=== PATIENT | female | born 1935 | race Caucasian/White ===

== ENCOUNTER 2016-04-03 09:20 | Outpatient (CLI) | payer OTHER ==
--- NOTE | 2016-04-03 09:53 | DIAGNOSTIC IMAGING REPORT ---
PROCEDURE: XR KNEE 3 VIEWS - LEFT INDICATION: KNEE PX, initial encounter TECHNIQUE: Three views. COMPARISON: None. FINDINGS: Osteopenia. No fracture or dislocation. Normal joint spaces. No effusion. IMPRESSION: 1. Osteopenia
== END 2016-04-03 23:00 ==
LOC: XR SRH 09:20
DX: M85.80 Other specified disorders of bone density and structure, unspecified site (principal); C56.9 Malignant neoplasm of unspecified ovary; R68.2 Dry mouth, unspecified

== ENCOUNTER 2016-04-18 18:20 | Outpatient (CLI) | payer OTHER | END 2016-04-18 23:00 | LOC: LAB SRH 18:20 | DX: M79.89 Other specified soft tissue disorders (principal) | CPT/HCPCS: 90074; 91556 ==

== ENCOUNTER 2016-04-19 14:36 | Outpatient (CLI) | payer OTHER ==
--- NOTE | 2016-04-19 16:00 | DIAGNOSTIC IMAGING REPORT ---
PROCEDURE: US VENOUS - BILATERAL EXT INDICATION: SWELLING OF LEFT LEG/KNEE TECHNIQUE: Duplex sonography of the deep venous system in both lower extremities was performed. Compression and augmentation techniques were used. COMPARISON: None. FINDINGS: Each interrogated segment of deep vein from the common femoral vein into the calf veins demonstrates normal compressibility, augmentation and/or color Doppler flow without filling defect. No evidence of significant soft-tissue edema, soft-tissue mass or cyst. There is a fluid collection in the left anterior thigh distally. There is superficial femoral vein reflux with an component edi programmer to the greater saphenous vein. Greater saphenous vein measures 1.1 cm and there was 36 seconds of reflux. IMPRESSION: 1. No deep venous thrombosis in either lower extremity. 2. 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 3. Fluid collection proximal to the patella on the left.
--- NOTE | 2016-04-19 16:00 | DIAGNOSTIC IMAGING REPORT ---
PROCEDURE: US VENOUS - BILATERAL EXT INDICATION: SWELLING OF LEFT LEG/KNEE TECHNIQUE: Duplex sonography of the deep venous system in both lower extremities was performed. Compression and augmentation techniques were used. COMPARISON: None. FINDINGS: Each interrogated segment of deep vein from the common femoral vein into the calf veins demonstrates normal compressibility, augmentation and/or color Doppler flow without filling defect. No evidence of significant soft-tissue edema, soft-tissue mass or cyst. There is a fluid collection in the left anterior thigh distally. There is superficial femoral vein reflux with an component cinder block maker to the greater saphenous vein. Greater saphenous vein measures 1.1 cm and there was 36 seconds of reflux. IMPRESSION: 1. No deep venous thrombosis in either lower extremity. 2. 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 3. Fluid collection proximal to the patella on the left.
== END 2016-04-19 23:00 ==
LOC: US SRH 14:36
DX: I87.2 Venous insufficiency (chronic) (peripheral) (principal)

== ENCOUNTER 2016-04-26 08:27 | Outpatient (CLI) | payer OTHER ==
--- NOTE | 2016-04-26 09:54 | DIAGNOSTIC IMAGING REPORT ---
PROCEDURE: MR LOWER EXT JOINT WO CONT-LT INDICATION: INTERNAL DERANGMENT OF LEFT KNEE TECHNIQUE: PD and FAT-SAT PD sagittal and coronal images. FAT-SAT PD axial images. High-resolution T2 sagittal images of the cruciate ligaments. (Total of 6 sequences). COMPARISON: Left knee x-ray 04/03/2016 FINDINGS: Normal cruciate and lateral collateral ligaments. MCL is intact with adjacent edema suggestive of strain. Complex tear of the medial meniscus posterior horn. Normal lateral meniscus. Mild chondromalacia the medial and lateral compartments. Quadriceps and patellar tendons are normal. Prepatellar subcutaneous edema. Mild chondromalacia patella. Moderate effusion. Varicose veins present around the knee. IMPRESSION: 1. Medial meniscus posterior horn complex tear 2. 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 Findings suggestive of an MCL strain 4. Moderate effusion 5. Varicose veins
== END 2016-04-26 23:00 | disposition home or self-care (01) ==
LOC: MRI SRH 08:27
DX: M23.222 Derangement of posterior horn of medial meniscus due to old tear or injury, left knee (principal); M94.262 Chondromalacia, left knee; M25.462 Effusion, left knee; I83.92 Asymptomatic varicose veins of left lower extremity